=== PATIENT | female | born 1950 | race Caucasian/White ===

== ENCOUNTER 2020-05-02 10:58 | Outpatient (CLI) | payer MEDICARE, SELFPAY ==
[2020-05-03 19:31] LABS: SARS-CoV-2 RNA PCR Negative
== END 2020-05-02 10:59 | disposition home or self-care (01) ==
PROVIDERS: PCP Family Medicine; Visit Provider Family Medicine
DX: J32.9 Chronic sinusitis, unspecified (principal); Z20.822 Contact with and (suspected) exposure to COVID-19
CPT/HCPCS: C9803; U0003

== ENCOUNTER 2024-11-29 12:00 | Emergency (ER) | payer MEDICARE, SELFPAY ==
--- NOTE | ~2024-11-29 | XR_ITS ---
XR hip LT min 3V w AP pelvis 11/29/2024 12:42 Indication: Low back pain Procedure: AP pelvis and 2 views left hip Comparison: No prior studies for comparison. Findings: Pelvic rings intact. No acute fracture, subluxation or dislocation. No soft tissue abnormal ity. No foreign bodies. Impression: 1: No acute fracture. Reviewed, dictated and finalized at location A. Impression: 1: No acute fracture.
--- NOTE | ~2024-11-29 | XR_ITS ---
XR lumbar spine 2-3V 11/29/2024 12:42 Indication: Low back pain Procedure: 3 views lumbar spine Comparison: No prior studies for comparison. Findings: There is levoscoliosis. Vertebral body heights are maintained. There is facet hypertrophy a t L4-5 and L5-S1. There is no evidence for spondylolisthesis. There are cholecystectomy clips. There is atherosclerosis of the aorta. No acute fracture or traumatic malalignment. Impression: 1: Mild-moderate lumbar spondylosis. Reviewed, dictated and finalized at location A. Impression: 1: Mild-moderate lumbar spondylosis.
[2024-11-29 12:04] VITALS: BP 113/99; PULSE 70; RESP 17; TEMP 36.7; O2SAT 94
--- NOTE | 2024-11-29 12:22 | ED.BACK ---
HPI - Back Pain/Injury General Chief Complaint: Back Pain/Injury Stated Complaint: abdominal pain Time Seen by Provider: 11/29/24 12:22 Source: patient Mode of arrival: ambulatory Limitations: no limitations History of Present Illness HPI Narrative: 74 years old white female came to the ED by private car from home complaining of left lower back pain, intermittent started 3 days ago. Patient denies radiation of pain, fever, chills, nausea, vomiting. Patient denies any recent trauma or recent new physical activities. Patient reports some burning urination. patient did not take any pain medication at home for the last 3 days including Tylenol or ibuprofen Pain worse with certain movement and position, better laying still. Related Data Allergies Allergy/AdvReac Type Severity Reaction Status Date / Time No Known Allergies Allergy Unknown Verified 11/29/24 12:09 Review of Systems Review of Systems: All systems reviewed & are unremarkable except as noted in HPI and below Exam Narrative: General appearance: Well-developed, well-nourished Skin: Normal color Head: Normocephalic, nontraumatic Eyes: Clear conjunctiva ENT: Oropharynx normal, ears normal, nose normal Neck: Supple, nontender Chest and respiratory: Airway patent, no respiratory distress, no accessory muscle use Heart: Regular rate/rhythm Abdomen: Soft, nontender, no organomegaly, quiet bowel sounds Vascular: Normal peripheral pulses, normal capillary refill. Musculoskeletal: lower back exam showed localized tenderness at the sacroiliac joint area, no bruises, no swelling, no rash Neurologic: Alert and oriented ?3, CYBER SECURITY ARCHITECT is normal as tested, no gross motor deficit Course Vital Signs Vital signs: Vital Signs Temperature 36.7 C 11/29/24 12:04 Pulse Rate 70 11/29/24 12:04 Respiratory Rate 17 11/29/24 12:04 Blood Pressure 113/99 H 11/29/24 12:04 Pulse Oximetry 94 11/29/24 12:04 Oxygen Delivery Room Air 11/29/24 12:04 Temperature 36.6 C 11/29/24 13:05 Pulse Rate 70 11/29/24 13:05 Respiratory Rate 17 11/29/24 13:05 Blood Pressure 113/99 H 11/29/24 13:05 Pulse Oximetry 94 11/29/24 13:05 Oxygen Delivery Room Air 11/29/24 13:05 MDM - Back Pain/Injury MDM Narrative Medical decision making narrative: patient presents with lower back pain Vital signs are stable Physical examination consistent with localized tenderness at the left lower back Differential diagnosis musculoskeletal, sacroiliitis, urinary tract infection X-ray of the lumbar spine and left hip showed no acute osseous abnormality Urinalysis showed no acute abnormalities Diagnosis lower back pain, musculoskeletal is my concern Discharged on diclofenac and Flexeril. Patient received ibuprofen and Tylenol in the ED prior to discharge with quite a bit of improvement. The pt was discharged to home.the pt,s condition upon discharge was fair,education was provided to the pt in reference to the final impression,discharge study results,treatment,prognosis and need for follow up . Differential Diagnosis Differential diagnosis: Likely lumbar radiculopathy, strain of lumbar region and other (Urinary tract infection) Lab Data Attestation: I reviewed the patient's lab results. Labs: Lab Results 11/29/24 Range/Units 12:23 Urine Color Light yellow (Yellow) Urine Appearance Clear (Clear) Urine pH 6.0 (5.0-8.0) Ur Specific Morris 1.010 (1.010-1.020) Urine Protein Negative (Negative) Urine Glucose (UA) Negative (Negative) Urine Ketones Negative (Negative) Ur Blood (Man) Negative (Negative) Urine Nitrate Negative (Negative) Urine Bilirubin Negative (Negative) Urine Urobilinogen 0.2 (0.2-1.0) mg/dL Leukocyte Esterase Rfl Negative (Negative) YOLANDA/UL Imaging Data Radiologist's impression: Impressions Lumbar Spine X-Ray 11/29/24 12:44 Impression: 1: Mild-moderate lumbar spondylosis. Hip/Pelvis X-Ray 11/29/24 12:47 Impression: 1: No acute fracture. Critical Care Time Critical Care Time Critical Care Time: No Discharge Plan Discharge Clinical Impression: Lower back pain Patient Disposition: Home Condition: Stable Instructions: Acute Low Back Pain (ED) Additional Instructions: Return if symptoms are worsening , call your family physician for appointment, take Tylenol as as needed for aches and pain, continue home medications. Heating pad Massage Patient Language: Mohawk Prescriptions: New diclofenac sodium 75 mg tablet,delayed release (DR/EC) 75 mg PO BID PRN (Reason: pain) Qty: 10 0RF cyclobenzaprine 5 mg tablet 5 mg PO TID Qty: 20 0RF Follow-up/Referrals: Mart Fink MD [Primary Care Provider] -
[2024-11-29 12:28] LABS: Add Urine Microscopic? NO; Appearance Urine Clear (Clear); Glucose Urine UA Negative (Negative); Leukocyte Esterase Ur Negative LEU/UL (Negative); Nitrate Urine Negative (Negative); Specific Grav Ur 1.010 (1.010-1.020)
[2024-11-29] MEDS: IBUPROFEN 600 MG TABLET PO (12:43)
[2024-11-29] MEDS: ACETAMINOPHEN 325 MG TABLET 650 MG PO (12:43)
--- OUTSIDE RECORDS SUMMARY | 2024-11-29 12:48 | XMS_ITS | Encounter Summary ---
Author Organization [facility] Address [facility] [place] [address] Care Team Providers Care Infrastructure Analyst Name Role Phone Mart Fink MD Primary Care Provider [phone] Darrian Perry MD Unavailable [phone] Encounter Details Date Type Department Care Team (Late st Contact Info) Description 10/13/2018 Abstract [facility] [address] [place] [phone] Abstract, Doc [facility] Social History Tobacco Use Types Packs/Day Years Used Date Smoking Tobacco: Every Day Alcohol Use Standard Drinks/Week Comments Yes 0 (1 standard drink = 0.6 oz pur e alcohol) Comments Unknown Sex and Gender Information Value Date Recorded Sex Assigned at Not on file Legal Sex 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
--- OUTSIDE RECORDS SUMMARY | 2024-11-29 12:48 | XMS_ITS | Clinical Summary ---
Author Organization [facility] Address [facility] [place] [address] Care Team Providers Care Hatchery Worker Name Role Phone Mart Fink MD Primary Care Provider [phone] Darrian Perry MD Unavailable Allergies No known active allergies Medications atorvastatin 80 MG tablet Take 1 tablet (80 mg total) by mouth daily. 04/21/2017 Active aspirin EC (ASPIRIN) 81 MG EC tablet Take 1 tablet (81 mg total) by mouth daily. Active LOSARTAN 25 MG tablet TAKE ONE TABLET BY MOUTH DAILY 90 tablet 3 01/16/2018 Active nitroglycerin 0.[address] 1 tablet (0.4 mg total) under the tongue as needed. 03/25/2017 Active metoprolol succinate 25 MG 24 hr tablet Take 1 tablet (25 mg total) by mouth 2 (two) times a day. 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 05/19/2017 Ischemic cardiomyopathy 05/19/2017 Essential (primary) hypertension 05/19/2017 Hyperlipidemia, mixed 05/19/2017 Resolved Problems Problem Noted Date Diagnosed Date Resolved Date Postoperative examination 11/09/2016 Encounter for preventive health examination 11/02/2016 01/04/2020 Immunizations Immunization Administration Dates Next Due Fluzone High Dose - >Age 65 (Prefilled Syringe) 01/26/2022,02/06/2021,03/13/2020 Influenza (Generic) 01/19/2017 Influenza Adult (Generic) 01/09/2015 Pneumococcal (Prevnar 13) 01/09/2015 Zoster (Zostavax) 61537 Unt/0.65Ml 01/09/2015 Family History Medical History Relation Comments Coronary artery disease Brother Coronary artery disease Father Breast Cancer Sister Coronary artery disease Sister Relation Status Comments Brother Father Sister Alive Social History Tobacco Use Types Packs/Day Years Used Date Smoking Tobacco: Every Day Cigarettes 0.3 55.6 Started: 1970 Smokeless Tobacco: Never Tobacco Cessation:Ready to Q uit: Not Asked; Counseling Given: Not Answered Comments:1 pack a week Alcohol Use Standard Drinks/Week Comments Yes 0 (1 standard drink = 0.6 oz pur e alcohol) every few months Comments No Sex and Gender Information Value Date Recorded Sex Assigned at Not on file Legal Sex Female 6:38 AM FRAUD PREVENTION ANALYST Gender Identity Not on file Sexual Orientation Not on file Last Filed Vital Signs Vital Sign Reading Time Taken Comments Blood Pressure 104/64 05/03/2024 9:56 AM FRAUD PREVENTION ANALYST Pulse 60 05/03/2024 8:39 AM FRAUD PREVENTION ANALYST Temperature 36.8 C (98.3 F) 03/28/2024 12:07 PM FRAUD PREVENTION ANALYST Respiratory Rate 16 05/03/2024 8:39 AM FRAUD PREVENTION ANALYST Oxygen Saturation 91% 05/03/2024 10:00 AM FRAUD PREVENTION ANALYST Inhaled Oxygen Concentration - - Weight 59 kg (130 lb) 05/03/2024 8:19 AM FRAUD PREVENTION ANALYST Height 167.6 cm (5' 6) 05/03/2024 8:19 AM FRAUD PREVENTION ANALYST Body Mass Index 20.98 05/03/2024 8:19 AM FRAUD PREVENTION ANALYST Plan of Treatment Health Maintenance Due Date Last Done Comments ASCVD Statin 1950 Colorectal Cancer Screening Colonoscopy (10 Years) 1950 Hepatitis C 09/12/1967 DTaP, Tdap and Td Vaccines (1 - Tdap) 1968 Annual Medicare Wellness Visit 2014 Dexa Scan (General) 2014 Pneumococcal Vaccine: 50+ Years (2 of 2 - PPSV23) 03/06/2015 01/09/2015 Zoster Vaccines (2 of 3) 03/06/2015 01/09/2015 ASCVD LDL 03/25/2018 03/25/2017, 03/19/2017 COVID-19 Vaccine ( season) 2023 03/10/2022, 08/12/2021, 01/19/2021, Additional history exists RSV Immunization or 60+ Years (1 - 1-dose 75+ series) 2024 Meningococcal B Vaccine Aged Out No l onger eligible based on patient's age to complete this topic Meningococcal Vaccine Aged Out No sergey sharmin eligible based on patient's age to complete this topic RSV Immunizations Under 20 Months Aged Out No longer eligible based on patient's age to complete this topic Medical Devices Implanted Type Area Lip Cutter Device Identifier Shelf Expiration Date Model / Serial / Lot Iol Tecnis Simplicity Dcb00 - [id number] Implanted:Qty: 1 on 03/28/2024 by Jenny Jama MD at [facility] [employer] 10/27/2026 DCB00 / / NONE Iol [employer] Simplicity Dcb00 - [id number] Implanted:Qty: 1 on 05/03/2024 by Jenny Jama MD at [facility] [employer] Left: Eye [employer] [id number] 04/01/2026 DCB00 / [id number] / Procedures Procedure Name Priority Date/Time Associated Diagnosis Comments LIPID PANEL EXTENDED TIMED 03/25/2017 3:38 AM FRAUD PREVENTION ANALYST from Last 3 Months or Most Recently Relevant to Health Maintenance Results * (ABNORMAL) LIPID PANEL EXTENDED (03/25/2017 3:38 AM FRAUD PREVENTION ANALYST) HDL 31(L) >39 MG/DL 03/25/2017 4:40 AM [facility] Comment:LOW: <40 LIPOPROTEIN (A) 1 0 - 30 MG/DL 03/25/2017 4:40 AM FRAUD PREVENTION ANALYST [facility] DIRECT LDL 73 0 - 129 MG/DL 03/25/2017 4:40 AM [facility] Comment:<100 OPTIMAL CHOLESTEROL 122 0 - 200 MG/DL 03/25/2017 4:40 AM [facility] Comment:DESIRABLE: <200 TRIGLYCERIDES 138 0 - 149 MG/DL 03/25/2017 4:40 AM [facility] Comment:<150 NORMAL VLDL CALCULATION 18 MG/DL 03/25/20 17 4:40 AM FRAUD PREVENTION ANALYST [facility] CHOL/HDL RATIO 3.9 03/25/2017 4:40 AM [facility] LDL/HDL 2.4 03/25/2017 4:40 AM [facility] APOLIPOPROTEIN B 88 64 - 182 MG/DL 03/25/2017 4:40 AM FRAUD PREVENTION ANALYST [facility] NON HDL CHOLESTEROL 91 MG/DL 03/25/2017 4:40 AM [facility] HOMOCYSTEINE (U) 10 MCMOL/L 03/25/20 4:57 AM [facility] HOMOCYSTINE NORMALS NORMAL LEVEL IS LESS THAN OR EQUAL TO 9 03/25/2017 12:05 AM [facility] Comment: MILD IS 10 TO 15 UMOL/L MODERATE IS 16 TO 30 UMOL/L MODERATE TO SEVERE IS 31 TO 100 UMOL/L SEVERE IS GREATER THAN 100 UMOL/L PLASMA SPECIMEN / Unknown 03/25/2017 3:38 AM FRAUD PREVENTION ANALYST 03/25/2017 4:13 AM FRAUD PREVENTION ANALYST us Generic Conversion Md [facility] Final R esult [facility] [address] [place] [address], [id number] from Last 3 Months or Most Recently Relevant to Health Maintenance Insurance MEDICARE [facility] MEDICARE Care Teams Hatchery Worker Relationship Specialty Start Date End Date Mart Fink MD [address] [place] [phone] PCP - General FAMILY PRACTICE 05/05/17 Darrian Perry MD [address] [place] [address] [place] Digital Business Analyst CARDIOVASCULAR DISEASE 10/11/18
[2024-11-29 13:05] VITALS: BP 113/99; PULSE 70; RESP 17; TEMP 36.6; O2SAT 94
== END 2024-11-29 13:05 | disposition home or self-care (01) ==
PROVIDERS: Emergency Provider Emergency Medicine; PCP Family Medicine
DX: M54.50 Low back pain, unspecified (principal)
CPT/HCPCS: 72100; 73502; 81003; 99284; A9270